=== PATIENT | male | born 1980 | race Caucasian/White ===

== ENCOUNTER 2017-05-17 03:08 | Emergency (ER) | payer OTHER ==
[2017-05-17 03:23] VITALS: BP 153/94; PULSE 75; O2SAT 99
[2017-05-17] MEDS ORDERED: BACIGUENT PACKET TP ONE (03:35)
[2017-05-17] MEDS ORDERED: TENIVAC VIAL IM ONE ×2 (03:35→03:44)
[2017-05-17] MEDS ORDERED: Marcaine 0.5% SDV 10 ML IJ ONE (03:35)
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
[2017-05-17] MEDS ORDERED: BACIGUENT PACKET ONE (03:43)
[2017-05-17] MEDS ORDERED: XYLOCAINE 1% HCL 20 ML MDV IJ ONE (04:16)
== END 2017-05-17 04:41 | disposition home or self-care (01) ==
LOC: ED 03:08
PROC: 0HQFXZZ Repair Right Hand Skin, External Approach (ICD-10-PCS; principal; 2017-05-17)
DX: S61.411A Laceration without foreign body of right hand, initial encounter (principal); F10.10 Alcohol abuse, uncomplicated; W22.8XXA Striking against or struck by other objects, initial encounter
CPT/HCPCS: 12002; 36415; 90471; 90714; 96372; 99284; G0481; A9270-GY

== ENCOUNTER 2019-04-20 19:47 | Observation (INO) | payer OTHER ==
[2019-04-20] MEDS ORDERED: DUONEB 0.5-3 MG/3 ml Neb IH ONE ×2 (20:29→21:08)
[2019-04-20] MEDS ORDERED: solu-MEDROL 125 MG IV ONE (20:30)
[2019-04-20] MEDS ORDERED: PHENERGAN WITH CODEINE SYRUP PO ONE (20:32)
[2019-04-20] MEDS ORDERED: solu-MEDROL 125 MG ONE (20:33)
--- NOTE | 2019-04-20 20:35 | ERPHSYRPT ---
- History of Present Illness Time Seen by Provider: 04/20/19 20:23 Source: patient Exam Limitations: no limitations (I. however it didn't go) Patient Subjective Stated Complaint: pt states that he has had cough for the past 5-6 days, pt state states that he went to the clinic on Thursday, pt states he had rt ear infection and lower respiratory problems, pt states Thursday he temp of 103.0, pt states he has very little sputum production, pt was started on ceftinir on Thursday, pt take breathing treatments at home last taken at 1400 Triage Nursing Assessment: pt ambulated into er, pt is diaphoretic, contious cough, respiration 28, hypertensive, LLL wheezes and crackles, RLL wheezes and stridor, URL and ULL clear, pt SOB Physician History: 38 years old with history of tobacco abuse presents to the ER with chief complaint of worsening cough and shortness of breath for almost one week. Patient was evaluated at urgent care,, currently on Omnicef but symptoms are worsening. He's coughing more frequently and is having generalized chest soreness. He also had a fever of 103 2 days ago which is improved now but is getting more short of breath even ingesting. He is also having wheezing despite taking the treatments frequently. Timing/Duration: day(s) (6) Cough Quality/Degree: moderate, dry cough, productive cough Possible Cause: unknown cause Modifying Factors: Improves With: coughing Associated Symptoms: fever, chills, chest pain/soreness, cough Allergies/Adverse Reactions: No Known Drug Allergies Allergy (Verified 04/20/19 20:25) Home Medications: No Reportable Medications [No Reported Medications] 05/17/17 [History] Hx Tetanus, Diphtheria Vaccination/Date Given: Yes Hx Influenza Vaccination/Date Given: Yes Hx Pneumococcal Vaccination/Date Given: No - Review of Systems Constitutional: Fever, Chills, Fatigue Eyes: No Symptoms Ears, Nose, & Throat: Nose Congestion, Sinus Drainage, Throat Pain Respiratory: Cough, Wheezing Cardiac: Chest Pain Abdominal/Gastrointestinal: No Symptoms, Abdominal Pain Musculoskeletal: No Symptoms Skin: No Symptoms Neurological: No Symptoms Psychological: No Symptoms Endocrine: No Symptoms Immunological/Allergic: No Symptoms - Past Medical History Pertinent Past Medical History: Yes Other Medical History: bradycardia. pt denies further hx - Past Surgical History Past Surgical History: Yes Other Surgical History: scope to left knee - Social History Smoking Status: Never smoker Exposure to second hand smoke: No Drug Use: none Patient Lives Alone: No - Nursing Vital Signs Nursing Vital Signs: Initial Vital Signs Temperature 99 F 04/20/19 20:03 Pulse Rate 91 H 04/20/19 20:03 Respiratory Rate 28 H 04/20/19 20:03 Blood Pressure 149/85 04/20/19 20:03 O2 Sat by Pulse Oximetry 97 04/20/19 20:03 Pain Scale Pain Intensity 0 - Physical Exam General Appearance: mild distress Eye Exam: eyes nml inspection Ears, Nose, Throat Exam: pharyngeal erythema, No tonsillar exudate Neck Exam: normal inspection, non-tender, supple, full range of motion Respiratory Exam: diminished breath sounds, crackles/rales, wheezing, No chest tenderness Cardiovascular Exam: regular rate/rhythm, normal heart sounds Gastrointestinal/Abdomen Exam: soft, No tenderness Back Exam: normal inspection, normal range of motion Extremity Exam: normal inspection, normal range of motion Neurologic Exam: alert, oriented x 3, cooperative Skin Exam: normal color, warm, dry SpO2 Interpretation: normal SpO2: 97 O2 Delivery: Room Air - Course Nursing assessment & vital signs reviewed: Yes Ordered Tests: Active Orders 24 hr Category Date Time Status Up With Assistance ROUTINE Activity 04/20/19 22:27 Active Code Status Order ROUTINE Care 04/20/19 22:27 Active IV Care Q6H Care 04/20/19 22:[address] in Observation ROUTINE Care 04/20/19 22:27 Active Pako Rivera, Apply ROUTINE Care 04/20/19 22:27 Active Weight,Daily 0600 Care 04/20/19 22:27 Active Regular Diet Diet 04/20/19 Breakfast Active CHEST 2 VIEWS (PA AND LAT) Stat Exams 04/20/19 19:03 Taken BLOOD CULTURE Stat Lab 04/20/19 21:44 Received BLOOD CULTURE Stat Lab 04/20/19 21:53 Received CBC AM.LAB Lab 04/21/19 04:00 Ordered CBC W DIFF Stat Lab 04/20/19 20:44 Completed CMP AM.LAB Lab 04/21/19 04:00 Ordered CMP Stat Lab 04/20/19 20:44 Completed Lactic Acid Stat Lab 04/20/19 21:20 Results Peak Expiratory Flow Rate ONCE RT 04/20/19 21:14 Completed Respiratory Therapy Assessment DAILY RT 04/20/19 21:14 Completed Transfer Order Routine Transfer 04/20/19 Completed Medication Summary Generic Name Dose Route Start Last Admin Trade Name Morris PRN Reason Stop Dose Admin Albuterol/Ipratropium 3 ml 04/20/19 23:00 Duoneb 0.5-3 Mg/3 Ml Neb IH 05/20/19 22:59 Q4HRT NUNO Levofloxacin/Dextrose 750 mg in 150 mls @ 100 mls/hr 04/21/19 10:00 Levofloxacin 750mg/150ml D5w IV 05/21/19 09:59 Q24H10 NUNO Sodium Chloride 1,000 mls @ 100 mls/hr 04/20/19 22:27 04/20/19 23:11 Sodium Chloride 0.9% 1000 Ml IV 05/20/19 22:26 100 mls/hr .Q10H NUNO Administration Methylprednisolone Sodium Succinate 80 mg 04/21/19 00:00 Solu-Medrol 125 Mg IV 05/21/19 00:00 Q6HT NUNO Discontinued Medications Generic Name Dose Route Start Last Admin Trade Name Morris PRN Reason Stop Dose Admin Acetaminophen/Codeine Phosphate 10 ml 04/20/19 20:39 04/20/19 20:40 Tylenol W/ Codeine 5 Ml Ud Cup PO 04/20/19 20:40 10 ml STAT ONE Administration Acetaminophen/Codeine Phosphate Confirm 04/20/19 20:39 Tylenol W/ Codeine 5 Ml Ud Cup Administered 04/20/19 20:40 Dose 10 ml .ROUTE .STK-MED ONE Albuterol/Ipratropium 3 ml 04/20/19 20:29 04/20/19 21:09 Duoneb 0.5-3 Mg/3 Ml Neb IH 04/20/19 20:30 3 ml STAT ONE Administration Albuterol/Ipratropium Confirm 04/20/19 21:08 Duoneb 0.5-3 Mg/3 Ml Neb Administered 04/20/19 21:09 Dose 3 ml IH .STK-MED ONE Piperacillin Sod/Tazobactam Sod 3.375 gm in 100 mls @ 200 mls/hr 04/20/19 21: 25 04/20/19 21:30 Zosyn 3.375gm/100 Ml D5w IV 04/20/19 21:54 200 mls/hr STAT STA 200 mls/hr Administration Piperacillin Sod/Tazobactam Sod Confirm 04/20/19 21:28 Zosyn 3.375gm/100 Ml D5w Administered 04/20/19 21:29 Dose 3.375 gm in 100 mls @ ud IV .STK-MED ONE Levofloxacin/Dextrose 750 mg in 150 mls @ 100 mls/hr 04/20/19 21:35 04/20/19 21:40 Levofloxacin 750mg/150ml D5w IV 04/20/19 23:04 100 mls/hr STAT STA 100 mls/hr Administration Sodium Chloride 1,000 mls @ 999 mls/hr 04/20/19 21:34 04/20/19 21:39 Sodium Chloride 0.9% 1000 Ml IV 04/20/19 22:34 999 mls/hr .Q1H1M STA Administration Sodium Chloride Confirm 04/20/19 21:36 Sodium Chloride 0.9% 1000 Ml Administered 04/20/19 21:37 Dose 1,000 mls @ ud .ROUTE .STK-MED ONE Levofloxacin/Dextrose Confirm 04/20/19 21:36 Levofloxacin 750mg/150ml D5w Administered 04/20/19 21:37 Dose 750 mg in 150 mls @ ud IV .STK-MED ONE Methylprednisolone Sodium Succinate 125 mg 04/20/19 20:30 04/20/19 20:40 Solu-Medrol 125 Mg IV 04/20/19 20:31 125 mg STAT ONE Administration Methylprednisolone Sodium Succinate Confirm 04/20/19 20:33 Solu-Medrol 125 Mg Administered 04/20/19 20:34 Dose 125 mg .ROUTE .STK-MED ONE Promethazine HCl/Codeine 10 ml 04/20/19 20:32 04/20/19 20:40 Phenergan With Codeine Syrup PO 04/20/19 20:33 Not Given STAT ONE Lab/Rad Data: Laboratory Result Diagrams 04/20/19 20:44 04/20/19 20:44 Laboratory Results 04/20/19 04/20/19 04/20/19 Range/Units 21:20 20:44 20:44 WBC 12.4 H (4.0-10.5) K/mm3 RBC 4.97 (4.1-5.6) M/mm3 Hgb 15.0 (12.5-18.0) gm/dl Hct 44.3 (42-50) % MCV 89.1 (78-100) fl MCH 30.2 (26-32) pg MCHC 33.9 (32-36) g/dl RDW 13.1 (11.5-14.0) % Plt Count 213 (150-450) K/mm3 MPV 10.1 H (6-9.5) fl Gran % 74.8 H (36.0-66.0) % Eos # (Auto) 0.25 (0-0.5) Absolute Lymphs (auto) 1.49 (1.0-4.6) Absolute Monos (auto) 1.35 H (0.0-1.3) Lymphocytes % 12.0 L (24.0-44.0) % Monocytes % 10.9 (0.0-12.0) % Eosinophils % 2.0 (0.00-5.0) % Basophils % 0.3 (0.0-0.4) % Absolute Granulocytes 9.29 H (1.4-6.9) Basophils # 0.04 (0-0.4) Sodium 139 (137-145) mmol/L Potassium 3.7 (3.5-5.1) mmol/L Chloride 99 (98-107) mmol/L Carbon Dioxide 26 (22-30) mmol/L Anion Gap 17.2 H (5-15) MEQ/L BUN 14 (9-20) mg/dL Creatinine 0.87 (0.66-1.25) mg/dL Estimated GFR > 60.0 ML/MIN Glucose 144 H (74-106) mg/dL Lactic Acid 3.1 H (0.4-2.0) Calcium 9.9 (8.4-10.2) mg/dL Total Bilirubin 1.30 (0.2-1.3) mg/dL AST 29 (17-59) U/L ALT 26 (0-50) U/L Alkaline Phosphatase 62 (38-126) U/L Serum Total Protein 8.0 (6.3-8.2) g/dL Albumin 4.2 (3.5-5.0) g/dL - Progress Progress: improved, re-examined Air Movement: fair Progress Note: 38-year-old is evaluated for increasing shortness of breath and cough despite taking Omnicef. Patient was to keep neck with bilateral wheezing and few crackles. He is given breathing treatment along with Solu-Medrol. Patient was going hypoxic 89% on room air while sitting. He is placed on 2 L oxygen currently on 93%. Feeling some improvement of her about management. X-ray did not show any focal pneumonia. I believe patient has viral URI followed by [facility] in no is having secondary colonization of bacteria. Started on Zosyn and Levaquin. We'll continue with frequent nebs and steroids. Discussed with Dr. Gould and patient is being admitted. 04/20/19 23:13 Blood Culture(s) Obtained: Yes Antibiotics given: Yes Discussed with .: Osiel Will see patient in: hospital (observation) Counseled pt/family regarding: lab results, diagnosis, rad results, smoking cessation - Departure Departure Disposition: Observation Clinical Impression: Pneumonia Qualifiers: Pneumonia type: due to unspecified organism Laterality: unspecified laterality Lung location: unspecified part of lung Qualified Code(s): J18.9 - Pneumonia, unspecified organism Respiratory failure Qualifiers: Chronicity: acute Respiratory failure complication: hypoxia Qualified Code(s): J96.01 - Acute respiratory failure with hypoxia Sepsis Qualifiers: Sepsis acute organ dysfunction status: unspecified Condition: Stable Critical Care Time: No
[2019-04-20] MEDS ORDERED: TYLENOL W/ CODEINE 5 ML UD CUP ONE (20:39)
[2019-04-20] MEDS ORDERED: TYLENOL W/ CODEINE 5 ML UD CUP PO ONE (20:39)
[2019-04-20 20:47] LABS: Absolute Neutrophil Ct (ANC) 9.29 (1.4-6.9); BASOPHIL % 0.3 % (0.0-0.4); Basophil (Absolute #) 0.04 (0-0.4); Eosinophil (Absolute #) 0.25 (0-0.5); Hematocrit 44.3 % (42-50); Lymphocyte (Absolute #) 1.49 (1.0-4.6); Mean Cell Volume 89.1 fl (78-100); Mean Corpuscular Hemoglobin 30.2 pg (26-32); Mean Corpuscular Hgb Concent. 33.9 g/dl (32-36); Mean Platelet Volume 10.1 fl (6-9.5); Monocyte (Absolute #) 1.35 (0.0-1.3); Monocytes % 10.9 % (0.0-12.0); Neutrophil % 74.8 % (36.0-66.0); Platelet Count 213 K/mm3 (150-450); Red Blood Count 4.97 M/mm3 (4.1-5.6); Red Cell Distribution Width 13.1 % (11.5-14.0); White Blood Count 12.4 K/mm3 (4.0-10.5)
[2019-04-20 20:53] LABS: ALBUMIN 4.2 g/dL (3.5-5.0); ALKALINE PHOSPHATASE 62 U/L (38-126); ANION GAP 17.2 MEQ/L (5-15); BLOOD UREA NITROGEN 14 mg/dL (9-20); CHLORIDE 99 mmol/L (98-107); Calcium 9.9 mg/dL (8.4-10.2); Carbon Dioxide 26 mmol/L (22-30); Creatinine 1 0.87 mg/dL (0.66-1.25); Glucose 144 mg/dL (74-106); Potassium 3.7 mmol/L (3.5-5.1); SGOT/AST 29 U/L (17-59); SGPT/ALT 26 U/L (0-50); SODIUM 139 mmol/L (137-145)
[2019-04-20] MEDS ORDERED: Zosyn 3.375GM/100 Ml D5W 3.375 GM/100 ML IVPB IV STA (21:25)
[2019-04-20 21:27] LABS: Lactic Acid 3.1 (0.4-2.0)
[2019-04-20] MEDS ORDERED: Zosyn 3.375GM/100 Ml D5W 3.375 GM/100 ML IVPB IV ONE (21:28)
[2019-04-20] MEDS ORDERED: Sodium Chloride 0.9% 1000 ML 1,000 ML IV STA (21:34)
[2019-04-20] MEDS ORDERED: LEVOFLOXACIN 750MG/150ML D5W 750 MG/150 ML BAG IV STA (21:35)
[2019-04-20] MEDS ORDERED: Sodium Chloride 0.9% 1000 ML 1,000 ML ONE (21:36)
[2019-04-20] MEDS ORDERED: LEVOFLOXACIN 750MG/150ML D5W 750 MG/150 ML BAG IV ONE (21:36)
[2019-04-20] MEDS: Sodium Chloride 0.9% 1000 ML 1,000 ML IV SCH (23:11)
[2019-04-20] MEDS: DUONEB 0.5-3 MG/3 ml Neb IH SCH (23:33)
[2019-04-21] MEDS: solu-MEDROL 125 MG IV SCH ×5 (00:55→23:52)
[2019-04-21] MEDS: DUONEB 0.5-3 MG/3 ml Neb IH SCH ×6 (03:30→23:36)
[2019-04-21 03:55] LABS: Lactic Acid 1.9 (0.4-2.0)
[2019-04-21 04:19] LABS: Hematocrit 42.4 % (42-50); Hemoglobin 14.5 gm/dl (12.5-18.0); Mean Cell Volume 88.9 fl (78-100); Mean Corpuscular Hemoglobin 30.4 pg (26-32); Mean Corpuscular Hgb Concent. 34.2 g/dl (32-36); Mean Platelet Volume 10.5 fl (6-9.5); Platelet Count 203 K/mm3 (150-450); Red Blood Count 4.77 M/mm3 (4.1-5.6); Red Cell Distribution Width 12.9 % (11.5-14.0); White Blood Count 6.5 K/mm3 (4.0-10.5)
[2019-04-21 04:32] LABS: ALKALINE PHOSPHATASE 59 U/L (38-126); ANION GAP 14.8 MEQ/L (5-15); BLOOD UREA NITROGEN 13 mg/dL (9-20); CHLORIDE 105 mmol/L (98-107); Calcium 9.7 mg/dL (8.4-10.2); Carbon Dioxide 26 mmol/L (22-30); Creatinine 1 0.67 mg/dL (0.66-1.25); Glucose 158 mg/dL (74-106); Potassium 4.4 mmol/L (3.5-5.1); SGOT/AST 24 U/L (17-59); SGPT/ALT 26 U/L (0-50); SODIUM 142 mmol/L (137-145); Total Protein 7.7 g/dL (6.3-8.2)
[2019-04-21] MEDS: Sodium Chloride 0.9% 1000 ML 1,000 ML IV SCH ×2 (08:49→18:38)
--- NOTE | 2019-04-21 08:58 | XRAY ---
Indication: Cough. Comparison: None PA/lateral chest obtained. Lateral view limited by respiration artifact. Tiny right mid lung calcified granuloma. Remaining heart and lungs normal. Bony thorax intact. Impression: Nonacute chest with evidence for old granulomatous disease.
--- NOTE | 2019-04-21 09:03 | PCM.HP ---
History of Present Illness - Chief Complaint Chief Complaint: pneumonia, sepsis, hypoxia History of Present Illness: is a 38 year old male pt who came in through ER and was diagnosed with pneumonia and sepsis. He has been sick x 5-6d with cough and fever to 103. He was seen at an outpatient clinic and started on cefdinir. He came to ER last night SOB and tachypneic. CXR nonacute but his clinical course continues to suggest pneumonia. Started on IV levaquin. Was on O2 2L per NC until this morning due to pulse ox 88% on RA. Pt would like to go home so he can go to work [employer]. He smokes <1/2 PPD but hasn't had a cigarette in several days. Drinks occasionally. No drug use. - Review of Systems Constitutional: Fever Respiratory: Cough, Short Of Breath Abdominal/Gastrointestinal: Nausea, Vomiting All Other Systems: Reviewed and Negative Medications & Allergies Home Medications: Home Medication List Benzonatate [Tessalon Perle] 100 mg PO Q68MSKP PRN 04/21/19 [History Confirmed 04/21/19] Cefdinir [Omnicef] 300 mg PO Q12H 04/21/19 [History Confirmed 04/21/19] Guaifenesin [Mucinex] 600 mg PO Q4HPRN PRN 04/21/19 [History Confirmed 04/21/19] Allergies/Adverse Reactions: Allergies Allergy/AdvReac Type Severity Reaction Status Date / Time No Known Drug Allergies Allergy Verified 04/20/19 20:25 - Past Medical History Past Medical History: Yes Neurological History: No Pertinent History ENT History: No Pertinent History Cardiac History: No Pertinent History Respiratory History: Pneumonia Endocrine Medical History: No Pertinent History Musculoskelatal History: No Pertinent History GI Medical History: No Pertinent History History: No Pertinent History Pyscho-Social History: No Pertinent History Male Reproductive Disorders: No Pertinent History Comment: bradycardia. pt denies further hx - Past Surgical History Past Surgical History: Yes Neuro Surgical History: No Pertinent History Cardiac History: No Pertinent History Respiratory Surgery: No Pertinent History GI Surgical History: No Pertinent History Genitourinary Surgical Hx: No Pertinent History Musculskeletal Surgical Hx: No Pertinent History Male Surgical History: No Pertinent History Other Surgical History: scope to left knee - Social History Smoking Status: Never smoker Exposure to second hand smoke: No Alcohol: Occasionally, Weekly Drug Use: none - Physical Exam Vital Signs: Vital Signs - 24 hr Temp Pulse Resp BP Pulse Ox 04/21/19 07:28 93 L 04/21/19 07:00 83 16 94 L 04/21/19 06:00 98.1 F 82 18 135/66 92 L 04/21/19 03:33 75 18 96 04/21/19 02:27 98.4 F 66 19 121/70 94 L 04/20/19 23:33 95 H 18 96 04/20/19 23:15 97 04/20/19 22:39 98.8 F 98 H 18 126/70 3 L 04/20/19 22:27 98.1 F 98 H 18 140/80 97 04/20/19 21:54 82 19 125/79 92 L 04/20/19 21:26 87 18 94 L 04/20/19 21:21 94 H 20 125/79 88 L 04/20/19 21:14 84 20 95 04/20/19 20:03 99 F 91 H 28 H 149/85 97 Oxygen-Last 24 hours O2 Percentage 2 Liters = 28% O2 Percentage 2 Liters = 28% O2 Percentage 3 Liters = 32% O2 Percentage 2 Liters = 28% O2 Percentage 2 Liters = 28% Oxygen Flowrate (L/min)-RT 93 General Appearance: no apparent distress, alert Neurologic Exam: oriented x 3, cooperative Eye Exam: eyes nml inspection Neck Exam: normal inspection, non-tender, No lymphadenopathy Respiratory Exam: normal breath sounds, rhonchi (faint, bilat bases), wheezing ( exp coarse wheezes), No crackles/rales Cardiovascular Exam: regular rate/rhythm, normal heart sounds, No murmur Gastrointestinal/Abdomen Exam: soft, normal bowel sounds, No tenderness, No distention, No mass, No guarding, No rebound Extremity Exam: normal inspection, No pedal edema, No swelling Skin Exam: normal color, warm, dry, No rash Results - Labs Lab/Micro Results: Lab Results-Last 24 Hours 04/20/19 04/20/19 04/20/19 Range/Units 20:44 20:44 21:20 WBC 12.4 H (4.0-10.5) K/mm3 RBC 4.97 (4.1-5.6) M/mm3 Hgb 15.0 (12.5-18.0) gm/dl Hct 44.3 (42-50) % MCV 89.1 (78-100) fl MCH 30.2 (26-32) pg MCHC 33.9 (32-36) g/dl RDW 13.1 (11.5-14.0) % Plt Count 213 (150-450) K/mm3 MPV 10.1 H (6-9.5) fl Gran % 74.8 H (36.0-66.0) % Eos # (Auto) 0.25 (0-0.5) Absolute Lymphs (auto) 1.49 (1.0-4.6) Absolute Monos (auto) 1.35 H (0.0-1.3) Lymphocytes % 12.0 L (24.0-44.0) % Monocytes % 10.9 (0.0-12.0) % Eosinophils % 2.0 (0.00-5.0) % Basophils % 0.3 (0.0-0.4) % Absolute Granulocytes 9.29 H (1.4-6.9) Basophils # 0.04 (0-0.4) Sodium 139 (137-145) mmol/L Potassium 3.7 (3.5-5.1) mmol/L Chloride 99 (98-107) mmol/L Carbon Dioxide 26 (22-30) mmol/L Anion Gap 17.2 H (5-15) MEQ/L BUN 14 (9-20) mg/dL Creatinine 0.87 (0.66-1.25) mg/dL Estimated GFR > 60.0 ML/MIN Glucose 144 H (74-106) mg/dL Lactic Acid 3.1 H (0.4-2.0) Calcium 9.9 (8.4-10.2) mg/dL Total Bilirubin 1.30 (0.2-1.3) mg/dL AST 29 (17-59) U/L ALT 26 (0-50) U/L Alkaline Phosphatase 62 (38-126) U/L Serum Total Protein 8.0 (6.3-8.2) g/dL Albumin 4.2 (3.5-5.0) g/dL 04/21/19 04/21/19 04/21/19 Range/Units 03:50 03:52 03:52 WBC 6.5 (4.0-10.5) K/mm3 RBC 4.77 (4.1-5.6) M/mm3 Hgb 14.5 (12.5-18.0) gm/dl Hct 42.4 (42-50) % MCV 88.9 (78-100) fl MCH 30.4 (26-32) pg MCHC 34.2 (32-36) g/dl RDW 12.9 (11.5-14.0) % Plt Count 203 (150-450) K/mm3 MPV 10.5 H (6-9.5) fl Gran % (36.0-66.0) % Eos # (Auto) (0-0.5) Absolute Lymphs (auto) (1.0-4.6) Absolute Monos (auto) (0.0-1.3) Lymphocytes % (24.0-44.0) % Monocytes % (0.0-12.0) % Eosinophils % (0.00-5.0) % Basophils % (0.0-0.4) % Absolute Granulocytes (1.4-6.9) Basophils # (0-0.4) Sodium 142 (137-145) mmol/L Potassium 4.4 (3.5-5.1) mmol/L Chloride 105 (98-107) mmol/L Carbon Dioxide 26 (22-30) mmol/L Anion Gap 14.8 (5-15) MEQ/L BUN 13 (9-20) mg/dL Creatinine 0.67 (0.66-1.25) mg/dL Estimated GFR > 60.0 ML/MIN Glucose 158 H (74-106) mg/dL Lactic Acid 1.9 (0.4-2.0) Calcium 9.7 (8.4-10.2) mg/dL Total Bilirubin 0.90 (0.2-1.3) mg/dL AST 24 (17-59) U/L ALT 26 (0-50) U/L Alkaline Phosphatase 59 (38-126) U/L Serum Total Protein 7.7 (6.3-8.2) g/dL Albumin 4.0 (3.5-5.0) g/dL - Radiology Impressions Radiology Exams & Impressions: Radiology Procedures Category Date Time Status CHEST 2 VIEWS (PA AND LAT) Stat Exams 04/20/19 19:03 Taken - Other Procedures and Tests Respiratory Therapy 04/20/19 23:37 Respiratory Therapy Assessment DAILY 04/20/19 23:38 Oxygen Nasal Cannula 3 lpm 04/21/19 07:00 Peak Expiratory Flow Rate ONCE Assessment/Plan (1) Pneumonia Current Visit: Yes Status: Acute Qualifiers: Pneumonia type: due to unspecified organism Laterality: unspecified laterality Lung location: unspecified part of lung Qualified Code(s): J18.9 - Pneumonia, unspecified organism Assessment & Plan: On IV levaquin. He does need to stay at least another day and see if he is hypoxic overnight. Code(s): J18.9 - PNEUMONIA, UNSPECIFIED ORGANISM (2) Sepsis Current Visit: Yes Status: Acute Qualifiers: Sepsis acute organ dysfunction status: unspecified Assessment & Plan: Blood cultures are pending.
[2019-04-21] MEDS ORDERED: Tessalon Perles 100 MG PO PRN (09:39)
[2019-04-21] MEDS ORDERED: GUAIFENESIN 600 MG PO PRN (09:39)
[2019-04-21] MEDS ORDERED: Mucinex 600MG ER Tabs PO PRN (09:44)
[2019-04-21] MEDS ORDERED: DESYREL 50 MG PO PRN (20:44)
[2019-04-21] MEDS ORDERED: LEVOFLOXACIN 750MG/150ML D5W 750 MG/150 ML BAG IV SCH (22:00)
[2019-04-22] MEDS: DUONEB 0.5-3 MG/3 ml Neb IH SCH ×2 (03:40→07:14)
[2019-04-22] MEDS: solu-MEDROL 125 MG IV SCH (06:40)
[2019-04-22] MEDS: Sodium Chloride 0.9% 1000 ML 1,000 ML IV SCH (06:41)
[2019-04-22 07:21] VITALS: O2SAT 95
[2019-04-22 07:52] VITALS: BP 136/70; PULSE 86
--- NOTE | 2019-04-22 11:30 | PCM.DS ---
Discharge Summary Date of Admission: 04/20/19 22:21 Admitting Physician: EDEN SARABIA DO Primary Care Provider: NO FAMILY DOCTOR Allergies Allergies No Known Drug Allergies Allergy (Verified 04/20/19 20:25) Hospital Summary - Hospital Course Hospital Course: Patient was admitted through ER with worsening of cough and shortness of breath. He was treated in [facility] a few days prior for OM and Bronchitis with Omnicef. Clinical picture of pneumonia with negative CXR. Patient improved with IV Levaquin and IV solumedrol, Albuterol neb treatments and hydration. - Vitals & Intake/Output Vital Signs: Vital Signs Temperature 98.9 F 04/22/19 07:52 Pulse Rate 86 04/22/19 07:52 Respiratory Rate 20 04/22/19 07:52 Blood Pressure 136/70 04/22/19 07:52 O2 Sat by Pulse Oximetry 95 04/22/19 07:52 Oxygen-Last Documented O2 Percentage 2 Liters = 28% Intake & Output: Intake & Output 04/19/19 04/20/19 04/21/19 04/22/19 11:59 11:59 11:59 11:59 Intake Total 2385 5691 Output Total 1550 Balance 835 5691 Weight 92.3 kg 94 kg - Lab Result Diagrams: 04/21/19 03:52 04/21/19 03:52 - Radiology Exams Ordered Rad Exams-Entire Visit: Radiology Procedures Category Date Time Status CHEST 2 VIEWS (PA AND LAT) Stat Exams 04/20/19 19:03 Completed - Procedures and Test Procedures and Tests throughout Hospitalization: Therapy Orders & Screens 04/20/19 21:14 Peak Expiratory Flow Rate ONCE Comment: Reason For Exam: Respiratory Therapy Assessment DAILY Comment: 04/20/19 23:37 Respiratory Therapy Assessment DAILY Comment: Diagnosis: pneumonia, sepsis, hypoxia 04/20/19 23:38 Oxygen Nasal Cannula 3 lpm Comment: Diagnosis: pneumonia, sepsis, hypoxia 04/21/19 07:00 Peak Expiratory Flow Rate ONCE Comment: Reason For Exam: Diagnosis: pneumonia, sepsis, hypoxia - Discharge Disposition: Home, Self-Care Condition: Stable Prescriptions: New Albuterol/Ipratropium 3ml Neb* [DUONEB 0.5-3 MG/3 ml Neb] 3 ml IH Q4HRT ampul.neb levoFLOXacin [Levofloxacin] 750 mg PO HS #5 tablet Prednisone 20 mg [Deltasone 20 mg] 20 mg PO BID #20 tablet Continue Benzonatate [Tessalon Perle] 100 mg PO [id number] PRN PRN Reason: cough Changed Guaifenesin [Mucinex] 600 mg PO BID #10 Discontinued Cefdinir [Omnicef] 300 mg PO Q12H Instructions: Pneumonia, Adult (DC) Follow up with: EDEN SARABIA DO [ACTIVE STAFF] - 05/02/19 10:10 am Forms: Work/School Release Form
== END 2019-04-22 11:10 | disposition home or self-care (01) ==
LOC: ED 19:47 → MED SURG 22:21
PROVIDERS: ADMIT Family Medicine; ATTEND Family Medicine
DX: J18.9 Pneumonia, unspecified organism (principal); A41.9 Sepsis, unspecified organism; J96.01 Acute respiratory failure with hypoxia
CPT/HCPCS: 36415; 71046; 80053; 83605; 85025; 85027; 87040; 94150; 94640; 94760; 96374; 99285; G0378; J1956; J2543; J2930; A9270-GY

== ENCOUNTER 2021-01-20 15:23 | Emergency (ER) | payer OTHER ==
[2021-01-20 15:37] VITALS: BP 138/89; PULSE 75; O2SAT 95
--- NOTE | 2021-01-20 15:52 | ERPHSYRPT ---
- History of Present Illness Time Seen by Provider: 01/20/21 15:30 Source: patient Exam Limitations: no limitations Patient Subjective Stated Complaint: pt reports wakeboarding just [employer] when the board hit him on the face. pt with laceration to left lateral brow, minimal bl eeding at this time, controlled, skin is well approximated. Triage Nursing Assessment: pt is aox3, pupils perrl, afebrile, resps easy and non labored, cap refill < 3 seconds, radial pulses strong and equal, pt skin pink warm dry. Physician History: 40 years old male presented in the ER with chief complaint of left forehead laceration while wakeboarding, slipped and board hit the forehead area causing laceration above left eyebrow's. Was bleeding initially but stopped with applying pressure. Denies any headache, dizziness lightheadedness or loss of consciousness. No nausea or vomiting. No difficulty movements of eyeball. No visual disturbance. Up-to-date with tetanus. No injury anywhere else. Timing/Duration: resolved prior to arrival, sudden, improved Quality: painful Severity: mild Location: face Possible Causes: other Associated Symptoms: denies symptoms Allergies/Adverse Reactions: No Known Drug Allergies Allergy (Verified 01/20/21 15:37) Hx Tetanus, Diphtheria Vaccination/Date Given: Yes Hx Influenza Vaccination/Date Given: No Hx Pneumococcal Vaccination/Date Given: No Immunizations Up to Date: Yes Travel Risk - International Travel Have you traveled outside of the country in past 3 weeks: No - Coronavirus Screening Are you exhibiting any of the following symptoms?: No Close contact with a COVID-19 positive Pt in past 14-21 Days: No - Vaccine Status Have you recieved a Covid-19 vaccination: No - Review of Systems Constitutional: No Symptoms Eyes: No Symptoms Ears, Nose, & Throat: No Symptoms Respiratory: No Symptoms Cardiac: No Symptoms Abdominal/Gastrointestinal: No Symptoms Genitourinary Symptoms: No Symptoms Musculoskeletal: Injury Skin: No Symptoms Neurological: No Symptoms Psychological: No Symptoms Endocrine: No Symptoms - Past Medical History Pertinent Past Medical History: Yes Neurological History: No Pertinent History ENT History: No Pertinent History Cardiac History: No Pertinent History Respiratory History: Pneumonia Endocrine Medical History: No Pertinent History Musculoskeletal History: No Pertinent History GI Medical History: No Pertinent History History: No Pertinent History Psycho-Social History: No Pertinent History Male Reproductive Disorders: No Pertinent History Other Medical History: bradycardia. pt denies further hx - Past Surgical History Past Surgical History: Yes Neuro Surgical History: No Pertinent History Cardiac: No Pertinent History Respiratory: No Pertinent History Gastrointestinal: No Pertinent History Genitourinary: No Pertinent History Musculoskeletal: No Pertinent History Male Surgical History: No Pertinent History Other Surgical History: scope to left knee - Social History Smoking Status: Never smoker Exposure to second hand smoke: No Drug Use: none Patient Lives Alone: No - Nursing Vital Signs Nursing Vital Signs: Initial Vital Signs Temperature 98 F 01/20/21 15:28 Pulse Rate 75 01/20/21 15:28 Respiratory Rate 20 01/20/21 15:28 Blood Pressure 138/89 01/20/21 15:28 O2 Sat by Pulse Oximetry 95 01/20/21 15:28 Pain Scale Pain Intensity 0 - Physical Exam General Appearance: no apparent distress, alert Eye Exam: PERRL/EOMI, eyes nml inspection, other (4 cm laceration on the lateral aspect just above left eyebrow. No active bleeding or spurting. Not skull deep.) Ears, Nose, Throat Exam: normal ENT inspection, TMs normal, pharynx normal, moist mucous membranes Neck Exam: normal inspection, non-tender, supple, full range of motion Respiratory Exam: normal breath sounds, lungs clear Cardiovascular Exam: regular rate/rhythm, normal heart sounds Extremity Exam: normal inspection Neurologic Exam: alert, oriented x 3, cooperative, pharmaceutical laboratory technician II-XII nml as tested, normal mood/affect, nml cerebellar function, nml station & gait, sensation nml, No motor deficits Skin Exam: normal color SpO2 Interpretation: normal SpO2: 95 O2 Delivery: Room Air Procedures - Laceration/Wound Repair Left Frontal Time of Procedure: 15:51 Wound Location: Left Wound Length (cm): 4 Wound's Depth, Shape: into muscle, linear Wound Explored: clean Irrigated: Yes Hibiclens Prep: Yes Anesthesia: 1% Lidocaine Volume Anesthetic (ccs): 4 Wound Repaired With: sutures Suture Size/Type: 5-0, prolene Number of Sutures: 8 Layer Closure?: No Sterile Dressing Applied?: Yes - Progress Progress: improved Progress Note: 01/20/21 15:53 Laceration is repaired. No signs of internal injury. Offered CT head. Patient refused and I think it is reasonable. Given instructions for return in case of any signs symptoms of head injury appear. Outpatient follow-up for wound reevaluation and suture removal. Counseled pt/family regarding: diagnosis, need for follow-up - Departure Departure Disposition: Home Clinical Impression: Forehead laceration Qualifiers: Encounter type: initial encounter Qualified Code(s): S01.81XA - Laceration without foreign body of other part of head, initial encounter Condition: Stable Critical Care Time: No Referrals: DOCTOR,NO FAMILY [Primary Care Provider] - RUBIN TRACY [ACTIVE STAFF] - Follow Up with PCP/3 days Instructions: Closed Head Injury (DC), Laceration Repair With Stitches (DC) Additional Instructions: Follow head injury instructions. Apply ice. Follow-up with your primary care physician for reevaluation and suture removal in 5 days. Return to ER for persistent worsening headache, dizziness lightheadedness, numbness tingling weakness, persistent vomiting and not feeling himself. Use Tylenol as needed. Do not take ibuprofen or Aleve.
[2021-01-20] MEDS ORDERED: XYLOCAINE 1% HCL 20 ML MDV IJ ONE (16:18)
[2021-01-20] MEDS ORDERED: BACIGUENT PACKET TP ONE (16:18)
[2021-01-20] MEDS ORDERED: XYLOCAINE 1% HCL 20 ML MDV ONE (16:19)
[2021-01-20] MEDS ORDERED: BACIGUENT PACKET ONE (16:19)
== END 2021-01-20 16:23 | disposition home or self-care (01) ==
LOC: ED 15:23
DX: S01.81XA Laceration without foreign body of other part of head, initial encounter (principal); W21.89XA Striking against or struck by other sports equipment, initial encounter; Y93.89 Activity, other specified; Y92.89 Other specified places as the place of occurrence of the external cause
CPT/HCPCS: 12013; 96372; 99284; A9270-GY